=== PATIENT | male | born 1935 | race Hispanic/Latino ===

== ENCOUNTER → 2017-06-19 | Outpatient (CLI) | payer MEDICARE ==
[2017-06-19 13:25] LABS: INR 1.07; PROTHROMBIN TIME 14.5 seconds (11.9-14.5)
[2017-06-19 13:26] LABS: PARTIAL THROMBOPLASTIN TIME 34.6 seconds (23.8-35.5)
--- NOTE | 2017-06-19 14:33 | Diagnostic Imaging Report ---
Ultrasound-guided Thoracentesis June 19, 2017 Pre-Procedure Diagnosis: Left pleural effusion Post-procedure Diagnosis:Left pleural effusion Doll Surgeon: Brunilda Moon Router Operator Radial: None Sedation: None. 1% lidocaine local anesthesia. Estimate blood loss: <5 mL Blood administered: None Complications: None Implants/Grafts: None Specimen: 1100 mL serous fluid Procedure: Informed consent was obtained and the patient positioned in a sitting position in the ultrasound suite. A timeout was performed, followed by preliminary ultrasound of the chest. The back was prepped and draped in standard sterile fashion. Using real-time ultrasound guidance a 5-[place] one-step centesis needle was advanced into the left thoracic cavity. An image was stored in the electronic medical record. 1500 mL serous fluid was aspirated. The procedure was terminated when the patient developed significant coughing with chest pain. A moderate to large amount of residual fluid was noted. At the end of the procedure the catheter was removed and a sterile dressing applied. The patient tolerated the procedure well. No complications. Findings: Massive volume left effusion. Impression: Successful ultrasound-guided left thoracentesis with removal of 1500 mL of fluid. The procedure was terminated when the patient developed chest pain and extensive coughing related to lung reexpansion. Samples were submitted for evaluation. This report was generated with voice-recognition technology. Errors in [employer] can occur. Please interpret accordingly and contact a radiologist if there are any questions regarding the report. Signed by: Dr. Andrew Moon M.D. on 06/19/2017 2:30 PM
--- NOTE | 2017-06-19 15:04 | Diagnostic Imaging Report ---
PROCEDURE:CHEST XRAY POST PROCEDURE TECHNIQUE:Upright PA chest. INDICATION:Postthoracentesis COMPARISON:None. FINDINGS: The right lung is clear. Moderate left pleural effusion predominantly along the lateral margin of the left hemithorax with associated lower lobe airspace opacity. The left upper lobe is clear. Mildly prominent cardiac silhouette with normal central vasculature. Postoperative sequela of CABG, with intact midline wires. Coarse atherosclerosis of the aortic arch. Intact skeleton. CONCLUSION: 1. No pneumothorax status post left thoracentesis. 2. Moderate residual pleural effusion along the lateral margin of the left hemithorax. This is likely partially loculated. 3. Left lower lobe airspace opacity consistent with residual atelectasis with or without pneumonia. Dictated by: Andrew Moon M.D. on 06/19/2017 at 15:12 Electronically approved by: Andrew Moon M.D. on 06/19/2017 at 15:12
[2017-06-19 15:05] LABS: BODY FLUID APPEARANCE SL.CLOUDY; BODY FLUID COLOR YELLOW; BODY FLUID TYPE PLEURAL
[2017-06-19 15:32] LABS: GLUCOSE 266 mg/dL (74-118); LACTATE DEHYDROGENASE 87 IU/L (125-220)
[2017-06-19 15:40] LABS: RBC,BODY FLUID 39 cells/uL; WBC,BODY FLUID 34 cells/uL
[2017-06-19 17:14] LABS: EOSINOPHILS,BODY FLUID 2 %; LYMPHOCYTES,BODY FLUID 74 %; MONO/MACROPHG,BODY FLUID 4 %; NEUTROPHILS,BODY FLUID 20 %
== END ==
LOC: US 11:49
PROVIDERS: ATTEND Internal Medicine Critical Care Medicine
DX: J90 Pleural effusion, not elsewhere classified (principal); J18.9 Pneumonia, unspecified organism; J44.9 Chronic obstructive pulmonary disease, unspecified
CPT/HCPCS: 32555; 36415; 71010; 82947; 82948; 83615; 84165; 85049; 85610; 85730; 87070; 87205; 88112; 88305; 89051